=== PATIENT | female | born 1980 | race Caucasian/White ===

== ENCOUNTER 2018-11-13 06:04 | Inpatient (IN) | payer OTHER ==
[~2018-11-13] VITALS: Ht 165.1 cm; Wt 95.0 kg
[~2018-11-13 06:04] MED LIST: DAILY VALUE1 EACH PO
--- NOTE | 2018-11-14 07:57 | PR ---
[facility] [address] [facility] [place], [place] [address] Signed PP Progress Notes Datetime Report Generated by RAN: 11/14/2018 07:57 SUBJECTIVE: [id number] Pain: Within normal limits Vital Signs: [id number] Vital Signs: Reviewed; Within Normal Limits EXAM: [id number] Cardiovascular: Not Done Respiratory: Not Done Abdomen/Uterus: Abnormal Lochia: Normal Vulva/Perineum: Not Done Breasts: Not Done CVA Tenderness: Not Done Extremities: Normal Incision: Not Applicable Progress: Normal Exam Comments: Fundus firm, NT @ U-1. H/H 8.8/27.7, WBC 13.1, plat 340k Aptima from 11/13 negative IMPRESSION/PLAN/PROCEDURES: [id number] Impression: Normal progression Plan: Discharge Procedures: None Progress Notes: Doing well. She would like D/C today if possible. Signing Physician: Renee Barrett MD Copies: ~ *Electronically Signed* 11/14/18 075 RENEE BARRETT MD PATIENT NAME: CORTEZ CASTELLANO PROGRESS NOTE DATE OF : 84 PHYSICIAN: RENEE BARRETT MD RPT #: [id number] REPORT IS CONFIDENTIAL AND NOT TO BE RELEASED WITHOUT AUTHORIZATION
== END 2018-11-14 14:40 | disposition home or self-care (01) | DRG 807 ==
LOC: FBCO 06:04 → FBC 06:25
PROVIDERS: ADMIT Obstetrics & Gynecology
PROC: 10E0XZZ Delivery of Products of Conception, External Approach (ICD-10-PCS; principal; 2018-11-13)
PROC: 00HU33Z Insertion of Infusion Device into Spinal Canal, Percutaneous Approach (ICD-10-PCS; 2018-11-13)
PROC: 3E0R3BZ Introduction of Anesthetic Agent into Spinal Canal, Percutaneous Approach (ICD-10-PCS; 2018-11-13)
DX: O98.32 Other infections with a predominantly sexual mode of transmission complicating childbirth (principal); Z37.0 Single live birth; A60.00 Herpesviral infection of urogenital system, unspecified; Z3A.39 39 weeks gestation of pregnancy; Z87.891 Personal history of nicotine dependence; Z79.899 Other long term (current) drug therapy; Z88.6 Allergy status to analgesic agent; Z86.19 Personal history of other infectious and parasitic diseases
CPT/HCPCS: 01960; 36415; 85027; 87491; 87591; J2590; J7120

== ENCOUNTER 2020-03-02 08:01 | Inpatient (IN) | payer OTHER ==
[~2020-03-02] VITALS: Ht 167.6 cm; Wt 95.0 kg
--- NOTE | 2020-03-02 13:03 | PR ---
[facility] [address] [facility] [place], [place] [address] Signed Progress Notes IP Datetime Report Generated by CPN: 03/02/2020 13:02 PROGRESS NOTES: [id number] Impression: Reassuring heart rate; Slow Progression of Labor Procedures: Artificial ROM; Sterile Vag Exam Plan: Continue present management Informed Consent Obtain: Vaginal Delivery; Induction of Labor; Risks, Benefits and Alternatives Discussed VITAL SIGNS: [id number] Vital Signs: Reviewed; Within Normal Limits EXAM: [id number] Dilatation: 3.0 Effacement: 70 Station: -2 Uterine Contractions: irregular MEMBRANES: [id number] Membrane Status: Intact ROM Note: AROM with moderate clear fluid Comments: Doing well. Will continue observation after AROM. Fetus A: [id number] FHR Baseline: 150 Variability: Moderate 6-25bpm Accelerations: 10X10 Decelerations: None FHR Category: Category II Presentation: Vertex Comments on Fetus A: No evidence of metabolic acidosis Fetus B: [id number] Signing Physician: Renee Barrett MD Copies: ~ *Electronically Signed* 03/02/20 1302 RENEE BARRETT MD PATIENT NAME: CORTEZ CASTELLANO RECORD #: [id number] PROGRESS NOTE DATE OF : 84 PHYSICIAN: RENEE BARRETT MD RPT #: [id number] REPORT IS CONFIDENTIAL AND NOT TO BE RELEASED WITHOUT AUTHORIZATION
--- NOTE | 2020-03-02 18:11 | PR ---
[facility] [address] [facility] [place], [place] [address] Signed Progress Notes IP Datetime Report Generated by CPGeorgie: 03/02/2020 18:11 PROGRESS NOTES: [id number] Impression: Normal progression of labor; Reassuring heart rate Procedures: Sterile Vag Exam Plan: Continue present management Informed Consent Obtain: Vaginal Delivery; Induction of Labor; Risks, Benefits and Alternatives Discussed VITAL SIGNS: [id number] Vital Signs: Reviewed; Within Normal Limits EXAM: [id number] Dilatation: 8.0 Effacement: 85 Station: 0 Uterine Contractions: q 1 to 5 min MEMBRANES: [id number] Membrane Status: Intact ROM Note: AROM with moderate clear fluid Comments: Very uncomfortable but tolerating her contractions so far. Progressing well. Will continue. Fetus A: [id number] FHR Baseline: 140 Variability: Moderate 6-25bpm Accelerations: 15X15 Decelerations: Variable FHR Category: Category II Presentation: Vertex Comments on Fetus A: overall reassuring with good variability Fetus B: [id number] Signing Physician: Renee Barrett MD Copies: ~ *Electronically Signed* 03/02/20 1811 RENEE BARRETT MD PATIENT NAME: CORTEZ CASTELLANO PROGRESS NOTE DATE OF : 84 PHYSICIAN: RENEE BARRETT MD RPT #: [id number] REPORT IS CONFIDENTIAL AND NOT TO BE RELEASED WITHOUT AUTHORIZATION
--- NOTE | 2020-03-03 07:51 | PR ---
[facility] [address] [facility] [place], [place] [address] Signed PP Progress Notes Datetime Report Generated by RAN: 03/03/2020 07:51 SUBJECTIVE: [id number] Pain: Within normal limits Pain Comments: having difficulty walking with hip pain Vital Signs: [id number] Vital Signs: Reviewed; Within Normal Limits EXAM: [id number] Cardiovascular: Not Done Respiratory: Not Done Abdomen/Uterus: Abnormal Lochia: Normal Vulva/Perineum: Not Done Breasts: Not Done CVA Tenderness: Not Done Extremities: Normal Incision: Not Applicable Progress: Normal Exam Comments: Fundus firm, NT @ U-1. H/H 8.1/25.6, WBC 11.1, plat 335k IMPRESSION/PLAN/PROCEDURES: [id number] Impression: Normal progression Other Impression: unstable with walking at this time Other Plans: use walker Progress Notes: Overall doing well but unstable hips currently. Will use walker today to help with ambulation with probable D/C in the am. Signing Physician: Renee Barrett MD Copies: ~ *Electronically Signed* 03/03/20 0751 RENEE BARRETT MD PATIENT NAME: CORTEZ CASTELLANO PROGRESS NOTE DATE OF : 84 PHYSICIAN: RENEE BARRETT MD RPT #: [id number] REPORT IS CONFIDENTIAL AND NOT TO BE RELEASED WITHOUT AUTHORIZATION
--- NOTE | 2020-03-04 09:16 | PR ---
[facility] [address] [facility] [place], [place] [address] Signed PP Progress Notes Datetime Report Generated by CPGeorgie: 03/04/2020 09:16 SUBJECTIVE: [id number] Pain: Within normal limits Pain Comments: walking much better Vital Signs: [id number] Vital Signs: Reviewed; Within Normal Limits EXAM: [id number] Cardiovascular: Not Done Respiratory: Not Done Abdomen/Uterus: Abnormal Lochia: Normal Vulva/Perineum: Not Done Breasts: Not Done CVA Tenderness: Not Done Extremities: Normal Incision: Not Applicable Progress: Normal Exam Comments: Fundus firm, NT @ U-1. IMPRESSION/PLAN/PROCEDURES: [id number] Impression: Normal progression Other Impression: unstable with walking at this time Plan: Discharge Other Plans: use walker Other Procedures: TDaP Progress Notes: Doing well. She is ready for D/C. Signing Physician: Renee Barrett MD Copies: ~ *Electronically Signed* 03/04/20915 RENEE BARRETT MD PATIENT NAME: CORTEZ CASTELLANO PROGRESS NOTE DATE OF : 84 PHYSICIAN: RENEE BARRETT MD RPT #: [id number] REPORT IS CONFIDENTIAL AND NOT TO BE RELEASED WITHOUT AUTHORIZATION
== END 2020-03-04 11:45 | disposition home or self-care (01) | DRG 806 ==
LOC: FBC → MS 03-03 10:15 → FBC 03-03 11:39
PROVIDERS: ADMIT Obstetrics & Gynecology
PROC: 10E0XZZ Delivery of Products of Conception, External Approach (ICD-10-PCS; principal; 2020-03-02)
PROC: 0KQM0ZZ Repair Perineum Muscle, Open Approach (ICD-10-PCS; 2020-03-02)
PROC: 10907ZC Drainage of Amniotic Fluid, Therapeutic from Products of Conception, Via Natural or Artificial Opening (ICD-10-PCS; 2020-03-02)
PROC: 3E0P7VZ Introduction of Hormone into Female Reproductive, Via Natural or Artificial Opening (ICD-10-PCS; 2020-03-02)
PROC: 3E0234Z Introduction of Serum, Toxoid and Vaccine into Muscle, Percutaneous Approach (ICD-10-PCS; 2020-03-04)
DX: O36.63X0 Maternal care for excessive fetal growth, third trimester, not applicable or unspecified (principal); O99.324 Drug use complicating childbirth; Z37.0 Single live birth; O98.32 Other infections with a predominantly sexual mode of transmission complicating childbirth; Z3A.40 40 weeks gestation of pregnancy; F15.90 Other stimulant use, unspecified, uncomplicated; O76 Abnormality in fetal heart rate and rhythm complicating labor and delivery; O70.1 Second degree perineal laceration during delivery; O69.81X0 Labor and delivery complicated by cord around neck, without compression, not applicable or unspecified; A60.00 Herpesviral infection of urogenital system, unspecified; O99.214 Obesity complicating childbirth; E66.9 Obesity, unspecified; Z23 Encounter for immunization; Z79.899 Other long term (current) drug therapy; Z86.19 Personal history of other infectious and parasitic diseases; Z88.6 Allergy status to analgesic agent
CPT/HCPCS: 36415; 85027; A9270; J2590